=== PATIENT | male | born 1980 | race Caucasian/White ===

== ENCOUNTER → 2022-05-17 | Day surgery (SDC) | payer OTHER ==
[~2022-05-17] VITALS: Ht 188 cm; Wt 192.8 kg
[~2022-05-17] MED LIST: DICLOFENAC POTA25 MG PO; NORVASC10 MG PO; PROZAC40 MG PO; VICODIN 10/3251 EACH PO; ZOFRAN8 MG PO
[2022-05-17 09:39] LABS: HCT 44.1 % (42.0-52.0); HGB 14.9 g/dl (13.2-18.0); MCH 28.5 pg (25.0-31.0); MCHC 33.8 g/dL (32.0-36.0); MCV 84.3 fL (78.0-100.0); MPV 9.5 fL (6.0-9.5); RBC 5.23 M/uL (4.70-6.00); RDW 14.9 % (11.5-14.0); WBC 8.3 K/uL (4.0-10.5)
[2022-05-17 09:44] LABS: ALBUMIN 3.4 g/dL (3.4-5.0); BILIRUBIN - TOTAL 0.6 mg/dL (0.2-1.0); BUN/CREAT RATIO (CALC) 12.8 RATIO; CREATININE 0.78 mg/dL (0.67-1.17); GLOBULIN (CALCULATION) 3.2 g/dL; POTASSIUM 3.7 mmol/L (3.5-5.1); TOTAL PROTEIN 6.6 g/dL (6.4-8.2)
== END | disposition home or self-care (01) ==
LOC: FAS 08:21
PROVIDERS: Orthopaedic Surgery
DX: S83.232A Complex tear of medial meniscus, current injury, left knee, initial encounter (principal); M25.862 Other specified joint disorders, left knee; M17.12 Unilateral primary osteoarthritis, left knee; I10 Essential (primary) hypertension; E78.00 Pure hypercholesterolemia, unspecified; Z88.1 Allergy status to other antibiotic agents; Z91.040 Latex allergy status; K21.9 Gastro-esophageal reflux disease without esophagitis
CPT/HCPCS: 36415; 71045; 80053; 93005; J1100; J1170; J1885; J2250; J2405; J2704; J3010; J7120